=== PATIENT | female | born 1965 | race Asian ===

== ENCOUNTER 2016-06-25 06:36 | Emergency (ER) | payer OTHER ==
[2016-06-25] MEDS ORDERED: HYDROmorphone 1 MG/ML SYRINGE IVP STA (06:58)
[2016-06-25] MEDS ORDERED: ONDANSETRON 4 MG/2 ML VIAL IVP STA (06:58)
[2016-06-25] MEDS ORDERED: MAG HYDROX/AL HYDROX/SIMETH 30 ML UDC PO STA (06:59)
[2016-06-25] MEDS ORDERED: HYDROmorphone 1 MG/ML SYRINGE ONE (07:11)
[2016-06-25] MEDS ORDERED: ONDANSETRON 4 MG/2 ML VIAL ONE (07:12)
[2016-06-25] MEDS ORDERED: MAG HYDROX/AL HYDROX/SIMETH 30 ML UDC ONE (07:12)
[2016-06-25] MEDS ORDERED: ONDANSETRON ODT 4 MG TABLET TL STA ×2 (09:40→09:41)
[2016-06-25] MEDS ORDERED: ONDANSETRON ODT 4 MG TABLET ONE (09:41)
== END 2016-06-25 09:46 | disposition home or self-care (01) ==
DX: K80.20 Calculus of gallbladder without cholecystitis without obstruction (principal)
CPT/HCPCS: 36415; 76700; 80053; 83690; 85025; 96374; 96375; 99283; 99284; A9270; J1170; Q0162

== ENCOUNTER 2016-08-06 10:03 | Day surgery (SDC) | payer OTHER ==
[2016-08-06] MEDS ORDERED: ceFAZolin 2 GM/50 ML 50 ML IV ONE (10:06)
[2016-08-06] MEDS ORDERED: LACTATED RINGERS 1,000 ML IV ONE ×3 (10:13→14:02)
[2016-08-06] MEDS ORDERED: ACETAMINOPHEN 1,000 MG/100 ML VIAL IV ONE (11:45)
[2016-08-06] MEDS ORDERED: SUCCINYLCHOLINE 200 MG/10 ML VIAL IVP ONE (11:45)
[2016-08-06] MEDS ORDERED: MIDAZOLAM 2 MG/2 ML VIAL IVP ONE (11:45)
[2016-08-06] MEDS ORDERED: PROPOFOL 200 MG/20 ML VIAL IVP ONE (11:45)
[2016-08-06] MEDS ORDERED: fentaNYL 100 MCG/2 ML VIAL IVP ONE (11:45)
[2016-08-06] MEDS ORDERED: DEXAMETHASONE 4 MG/ML VIAL IVP ONE (11:45)
[2016-08-06] MEDS ORDERED: ROCURONIUM 50 MG/5 ML VIAL IVP ONE (11:45)
[2016-08-06] MEDS ORDERED: KETOROLAC 30 MG/ML VIAL IVP ONE (11:45)
[2016-08-06] MEDS ORDERED: LIDOCAINE-MPF 2% 5 ML VIAL IM ONE (11:45)
[2016-08-06] MEDS ORDERED: ONDANSETRON 4 MG/2 ML VIAL IVP ONE (11:45)
[2016-08-06] MEDS ORDERED: BUPIVACAINE 0.5% PF 30 ML VIAL SUBQ ONE ×2 (12:16→13:41)
[2016-08-06] MEDS ORDERED: fentaNYL 100 MCG/2 ML VIAL ONE (14:52)
[2016-08-06] MEDS ORDERED: oxyCOD/ACETAMIN 5 MG/325 MG TABLET PO ONE (16:06)
== END 2016-08-06 10:04 | disposition home or self-care (01) ==
PROC: 0FB03ZX Excision of Liver, Percutaneous Approach, Diagnostic (ICD-10-PCS; 2016-08-06)
PROC: 0FT44ZZ Resection of Gallbladder, Percutaneous Endoscopic Approach (ICD-10-PCS; principal; 2016-08-06 11:25)
DX: K80.10 Calculus of gallbladder with chronic cholecystitis without obstruction (principal); K76.89 Other specified diseases of liver; K76.0 Fatty (change of) liver, not elsewhere classified; F41.9 Anxiety disorder, unspecified; Z90.710 Acquired absence of both cervix and uterus
CPT/HCPCS: 47001; 47562; A9270; J0131; J0690; J7120

== ENCOUNTER 2016-12-11 09:51 | Outpatient (CLI) | payer OTHER ==
--- NOTE | 2016-12-12 19:47 | Mammography Report ---
DIGITAL SCREENING MAMMOGRAM: 12/11/2016 CLINICAL INDICATION: A 51-year-old with history of late childbearing for screening. COMPARISON: 11/2015, 05/2013, 05/2009, 03/2008, 02/2008. TECHNIQUE: Routine CC and MLO projections were obtained of the breasts. The breasts again demonstrate heterogeneously dense fibroglandular parenchyma bilaterally. Coarse an d punctate, typically benign calcifications are present. No suspicious masses, clustered microcalcif ications, or regions of architectural distortion are identified. IMPRESSION: BENIGN FINDINGS. RECOMMENDATION: ROUTINE ANNUAL SCREENING UNLESS OTHERWISE CLINICALLY INDICATED. BIRADS CATEGORY: 2, BENIGN FINDINGS. STANDARD QUALIFYING STATEMENTS 1. This examination was reviewed with the aid of Computed-Aided Detection (CAD). 2. A negative or benign imaging report should not delay biopsy if clinically suspicious findings are present. Consider surgical consultation if warranted. More than 5% of cancers are not identified b y imaging. 3. Dense breasts may obscure an underlying neoplasm. 16:9:31 JOB #: [id number] EXT JOB #:[id number]
== END 2016-12-11 09:52 | disposition home or self-care (01) ==
LOC: DI 09:51
PROVIDERS: ATTEND Internal Medicine
DX: Z12.31 Encounter for screening mammogram for malignant neoplasm of breast (principal)
CPT/HCPCS: 77067

== ENCOUNTER 2022-12-23 15:36 | Emergency (ER) | payer OTHER ==
[2022-12-23 15:42] VITALS: BP 130/80; O2SAT 100
--- NOTE | 2022-12-23 16:33 | ED Physician Documentation ---
PD HPI LOWER EXT INJURY - Stated complaint Stated Complaint: LT WRIST PX - Chief complaint Chief Complaint: Ext Problem - History obtained from History obtained from: Patient - Additional information Additional information: 2 months ago this right-handed woman was pulling a hose and felt a pop on the ulnar side of her left, nondominant wrist which has been persistent since especially with certain motions. 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 - Present Medications Home Medications: Ambulatory Orders Medication Instructions Recorded Confirmed No Known Home Medications 06/25/16 08/06/16 - Allergies Allergies/Adverse Reactions: Allergies Allergy/AdvReac Type Severity Reaction Status Date / Time No Known Drug Allergies Allergy Verified 12/23/22 15:39 - Social History Does the pt smoke?: No Smoking Status: Never smoker Does the pt drink ETOH?: No Does the pt have substance abuse?: No - Immunizations Immunizations are current?: Yes - POLST Patient has POLST: No PD ED PE NORMAL - Vitals Vital signs reviewed: Yes - General General: Alert and oriented X 3, No acute distress - Extremities Extremities: Other (Very mild tenderness near the ulnar styloid of the left wrist. Also has pain with eversion. Flexion and extension is painless.) - Neuro Neuro: Alert and oriented X 3, Normal speech Results - Vitals Vitals: Vital Signs - 24 hr 12/23/22 15:39 Temperature 36.5 C Heart Rate 68 Respiratory 16 Rate Blood Pressure 130/80 O2 Saturation 100 Oxygen O2 Source Room air - Rads (name of study) 4 view x-ray left wrist showing some osteoarthritis but no traumatic findings. Relevant Findings:: Final report received, EMP independent interpretation of test PD Medical Decision Making - ED course ED course: Clinically this is more consistent with a tendinitis of the left wrist and she is immobilized and counseled on rest and follow-up. Departure - Departure Disposition: 01 Home, Self Care Clinical Impression: Left wrist tendinitis Condition: Good Record reviewed to determine appropriate education?: Yes Instructions: ED Splint Care Velcro, ED Sprain Wrist Follow-Up: [facility] [Provider Group] Comments: The x-ray looks okay, I think you have a tendinitis in the wrist. You should immobilize it and we are giving you a splint to do that with. Follow-up with our orthopedics clinic for further evaluation and treatment. You can take Tylenol and/or ibuprofen as needed for pain. Forms: PCP List Discharge Date/Time: 12/23/22 16:54
--- NOTE | 2022-12-23 16:50 | XRAY Report ---
PROCEDURE: Wrist 4 View LT INDICATIONS: Trauma TECHNIQUE: 4 views of the wrist were acquired. COMPARISON: None. FINDINGS: Bones: No fractures or dislocations. Osteoarthritic changes along radial aspect of left wrist are se en. No suspicious bony lesions. Soft tissues: No suspicious soft tissue calcifications or masses. IMPRESSION: No acute bony abnormality. Left wrist osteoarthritis. Reviewed by: Dave Farmer MD on 12/23/2022 4:49 PM PDT Approved by: Dave Farmer MD on 12/23/2022 4:49 PM PDT Station ID: [id number]
== END 2022-12-23 16:54 | disposition home or self-care (01) ==
LOC: ED 15:36
DX: M77.8 Other enthesopathies, not elsewhere classified (principal)
CPT/HCPCS: 99283